=== PATIENT | female | born 1945 | race Caucasian/White ===

== ENCOUNTER → 2017-06-10 | Outpatient (CLI) | payer MEDICARE ==
[~2017-06-10] MED LIST: ALEN70SO PO; ASPI-161 PO; BALS75CA PO; CLIN2CRE TOP; CLOB0.0548 TOP; FOLI400T PO; IBUP-1022 PO; LORA1TAB12 PO; LOVA1CAP17 PO; MESA50SU PR; MULT1TAB15 PO; OMEG10002 PO; OSTETAB PO; OSTETAB7 PO; PRESCAP PO; PROC2.5C PR; TRAM50TA2 PO; TRAZ50TA11 PO; VALT1TAB PO; VITA2000 PO
[2017-06-10 18:14] LABS: BLOOD UREA NITROGEN 18 MG/DL (7-18); CREATININE FOR GFR 0.63 MG/DL (0.55-1.02); GLOMERULAR FILTRATION RATE > 60.0 (>39); TOTAL PROTEIN 7.2 GM/DL (6.4-8.2)
[2017-06-10 20:27] LABS: FOLATE > 24.0 NG/ML; VITAMIN B12 LEVEL 683 PG/ML
[2017-06-11 12:00] LABS: ALBUMIN 4.35 GM/DL (3.29-5.55); ALBUMIN % 60.4 % (55.8-66.1); GAMMA GLOBULIN % 14.5 % (11.1-18.8)
[2017-06-15 00:06] LABS: ANTI HU ANTIBODY <1:10 Titer (.); N-METHYL-D-ASPARTATE RECPT IGG <1:10 (<1:10); SJOGREN'S ANTI SS-A <0.2 AI (0.0-0.9); SJOGREN'S ANTI SS-B <0.2 AI (0.0-0.9); VITAMIN E LEVEL 15.6 mg/L (6.5-21.5)
[2017-06-17 07:48] LABS: CV2 ANTIBODY SEE SEPARATE REPORT
[2017-06-17 07:49] LABS: ANTI-MaTa ABY SEE SEPARATE REPORT
== END ==
LOC: M LAB 12:49
PROVIDERS: ATTEND Psychiatry & Neurology Neurology
DX: N18.9 Chronic kidney disease, unspecified (principal); E11.9 Type 2 diabetes mellitus without complications; R20.0 Anesthesia of skin; Z13.29 Encounter for screening for other suspected endocrine disorder; R41.82 Altered mental status, unspecified; G04.81 Other encephalitis and encephalomyelitis